=== PATIENT | female | born 1985 | race Two or more races ===

== ENCOUNTER → 2022-07-02 12:49 | Outpatient (BNVA) | payer MEDICARE, SELFPAY | PROVIDERS: PCP Internal Medicine; Visit Provider Psychiatry & Neurology Neurology | DX: G81.90 Hemiplegia, unspecified affecting unspecified side (principal); R56.9 Unspecified convulsions | CPT/HCPCS: 99202 ==

== ENCOUNTER → 2022-10-01 09:01 | Outpatient (BNVA) | payer MEDICARE, OTHER, SELFPAY | PROVIDERS: PCP Internal Medicine; Visit Provider Nurse Practitioner Family | DX: R56.9 Unspecified convulsions (principal) | CPT/HCPCS: 99212 ==

== ENCOUNTER 2023-08-27 13:56 | Outpatient (AMB) | payer MEDICARE, SELFPAY ==
--- NOTE | 2023-08-27 14:02 | A.OFFVIS_ITS ---
Intake Vital Signs 08/27/23 14:04 Height 4 ft 11 in Weight 177 lb BMI 35.7 BP 124/68 Blood Pressure Location Lt brachial Position Sitting Pulse 84 Pulse Source Pulse Oximeter Pulse Oximetry (%) 98 Oxygen Delivery Method Room Air Intake Visit Reasons: f/u appt seizures-Confirmed Allergies No Known Allergies Allergy (Verified 08/27/23 14:06) Medication List - Last Reconciled 08/27/23 by Adiel Rivera CNP citalopram 40 mg PO DAILY divalproex 250 mg PO BID 30 days gabapentin 100 mg PO TID labetalol 100 mg PO BID HPI HPI Comments History of Present Illness Details 37y/o female comes for follow up seizure , brain MRI and EEG. Pt reports she weaned off the depakote to 250 mg BID. Reported no breakthrough seizure. However, she had a panic attack with had right side numbness. CT of brain showed no acute abnormality compared with the last one. She is on Depakote 250 mg BID and gabapentin TID. 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 She was on depakote ER 500mg 2tabs bid, gabapentin 100mg tid. She has residual right hemiparesis. Pt's BP manages well with labetalol 100 mg BID. No headaches. EEG result was normal waking EEG. Pt was referred to [facility] Medical History Seizure PTSD (post-traumatic stress disorder) OCD (obsessive compulsive disorder) Anxiety Depression Obesity HTN (hypertension) Intracranial bleed Hemiparesis Surgical History H/O: Family History Mother Cancer Father Diabetes Family/Other Ovarian cancer Family/Other Heart attack Cirrhosis of liver Social History Alcohol intake: never Patient Tobacco Use Status: Former Tobacco user Substance Use Type: Marijuana Physical Exam Vital Signs: Last Vital Signs Pulse 84 08/27/23 14:04 BP 124/68 08/27/23 14:04 Pulse Ox 98 08/27/23 14:04 Oxygen Delivery Method Room Air 08/27/23 14:04 BMI result Body Mass Index 35.7 Assessment & Plan Assessment & Plan (1) Hemiparesis: Code(s): G81.90 - Hemiplegia, unspecified affecting unspecified side (2) Seizure: Code(s): R56.9 - Unspecified convulsions Plan Continue to take depakote 250 mg BID and gabapentin 100 mg TID. Refer patient to physiatry for Botox consultation of spastic hemiparesis of right lower extremity. Orders: Referrals Physiatry Referral G81.90 - Hemiplegia, unspecified affecting unspecified side Coding Level of Care Code Est Pt Level 3 (43096) Diagnoses Hemiparesis G81.90 Seizure R56.9
[2023-08-27 14:04] VITALS: BP 124/68; PULSE 84; O2SAT 98; BMI 35.7
== END 2023-08-27 14:31 | disposition home or self-care (01) ==
PROVIDERS: PCP Internal Medicine; Visit Provider Nurse Practitioner Family
DX: G81.90 Hemiplegia, unspecified affecting unspecified side (principal); R56.9 Unspecified convulsions
CPT/HCPCS: 99213

== ENCOUNTER → 2023-08-27 13:56 | Outpatient (BNVA) | payer MEDICARE, MEDICAID, SELFPAY | PROVIDERS: PCP Internal Medicine; Visit Provider Nurse Practitioner Family | DX: G81.93 Hemiplegia, unspecified affecting right nondominant side (principal); R56.9 Unspecified convulsions | CPT/HCPCS: 99212 ==

== ENCOUNTER 2024-06-16 10:27 | Outpatient (AMB) | payer MEDICARE, MEDICAID, SELFPAY ==
[2024-06-16 10:35] VITALS: BP 122/62; PULSE 79; RESP 16; O2SAT 97; BMI 35.6
--- NOTE | 2024-06-16 10:35 | MHC.OFFVIS ---
Vital Signs 06/16/24 10:35 Height 4 ft 11 in Weight 176 lb 6 oz BMI 35.6 BP 122/62 Blood Pressure Location Rt brachial Position Sitting Respiration 16 Pulse 79 Pulse Source Pulse Oximeter Pulse Oximetry (%) 97 Oxygen Delivery Method Room Air Intake Visit Reasons: 6 mnts f/u appt Intake Note: Pt presents to the office for a 10 month follow up for hemiparesis. Rn Eligibility Required: No Allergies No Known Allergies Allergy (Verified 06/16/24 10:35) Medication List - Last Reconciled 06/16/24 by Shellie Zimmer MD citalopram 40 mg PO DAILY divalproex 250 mg PO BID 30 days gabapentin 100 mg PO TID 30 days labetalol 100 mg PO BID HPI Comments Details: 39y/o female comes for follow up seizure, brain MRI and EEG. she is on depakote to 250 mg BID. Reported no breakthrough seizure. she still gets panic attacks but has not seen a psychiatrist yet. CT of brain showed no acute abnormality compared with the last one. She is on Depakote 250 mg BID and gabapentin TID. 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 She has residual right hemiparesis. Pt's BP manages well with labetalol 100 mg BID. No headaches. EEG result was normal waking EEG. she does not drive . [facility], [facility] Medical History Seizure PTSD (post-traumatic stress disorder) OCD (obsessive compulsive disorder) Anxiety Depression Obesity HTN (hypertension) Intracranial bleed Hemiparesis Surgical History H/O: Family History Mother Cancer Father Diabetes Family/Other Ovarian cancer Family/Other Heart attack Cirrhosis of liver Social History Alcohol intake: never Patient Tobacco Use Status: Former Tobacco user Substance Use Type: Marijuana Physical Exam Vital Signs: Last Vital Signs Pulse 79 06/16/24 10:35 Resp 16 06/16/24 10:35 BP 122/62 06/16/24 10:35 Pulse Ox 97 06/16/24 10:35 Oxygen Delivery Method Room Air 06/16/24 10:35 BMI result Body Mass Index 35.6 Const General: cooperative, healthy appearing, comfortable and no acute distress Nutritional Appearance: obese Orientation/consciousness: patient oriented x3 HEENT Head: Yes normal to inspection, Yes normocephalic and Yes atraumatic Face and sinus: Yes normal facial exam Eyes General: appearance normal, both eyes and all related structures Neuro Other: Right spastic hemiparesis Right UE 4/5 Right Le 4-/5 Spasticty with restricted range of motion Gait -right circumduction General: patient oriented x3 Cranial nerves: No Bilaterally intact EOM present, Yes Nystagmus not present, Yes Normal facial strength present, No Midline tongue present and Yes Symmetric palate elevation present Motor exam (neuro): no other (left UE and LE 5/5) Deep tendon reflexes (DTR's): Right triceps reflex intensity grade: 4+, Left triceps reflex intensity grade: 2+, Rt Biceps (C5, C6): 4+, Left biceps reflex intensity grade: 2+, Right brachioradialis reflex intensity grade: 4+, Left brachioradialis reflex intensity grade: 2+, Right patellar reflex intensity grade: 4+, Left patellar reflex intensity grade: 2+, Right ankle reflex intensity grade: 4+ and Left ankle reflex intensity grade: 2+ Coordination: [id number] test normal Psych Appearance: grossly normal Speech and movement: Normal speech and movement present Assessment & Plan Assessment & Plan (1) Hemiparesis: Code(s): G81.90 - Hemiplegia, unspecified affecting unspecified side Category: Medical (2) Seizure: Code(s): R56.9 - Unspecified convulsions Category: Medical Plan Continue to take depakote 250 mg BID and gabapentin 100 mg TID. Psyhciatry eval Orders: Referrals Psychiatry Outpatient Consultation Service F32.A - Depression, unspecified, F41.9 - Anxiety disorder, unspecified, F42.9 - Obsessive-compulsive disorder, unspecified, F43.10 - Post-traumatic stress disorder, unspecified Coding Level of Care Code Est Pt Level 4 (36193) Complex EM visit Add On G2211 Diagnoses Hemiparesis G81.90 Seizure R56.9
== END 2024-06-16 11:00 | disposition home or self-care (01) ==
PROVIDERS: PCP Internal Medicine; Visit Provider Psychiatry & Neurology Neurology
DX: G81.90 Hemiplegia, unspecified affecting unspecified side (principal); R56.9 Unspecified convulsions
CPT/HCPCS: 99214; G2211

== ENCOUNTER → 2024-06-16 10:27 | Outpatient (BNVA) | payer MEDICARE, SELFPAY | PROVIDERS: PCP Internal Medicine; Visit Provider Psychiatry & Neurology Neurology | DX: G81.90 Hemiplegia, unspecified affecting unspecified side (principal); R56.9 Unspecified convulsions; F32.A Depression, unspecified; F41.9 Anxiety disorder, unspecified; F42.9 Obsessive-compulsive disorder, unspecified; F43.10 Post-traumatic stress disorder, unspecified | CPT/HCPCS: 99212 ==

== ENCOUNTER 2025-04-27 12:08 | Outpatient (AMB) | payer MEDICARE, MEDICAID, SELFPAY ==
--- NOTE | 2025-04-27 12:20 | A.OFFVIS_ITS ---
Vital Signs 04/27/25 12:21 Height 4 ft 11 in Weight 177 lb 4 oz BMI 35.8 BP 104/72 Blood Pressure Location Rt brachial Position Sitting Pulse 77 Pulse Source Pulse Oximeter Pulse Oximetry (%) 98 Oxygen Delivery Method Room Air Intake Visit Reasons: 6 mnts f/u appt Intake Note: Patient presents 6 month follow up for hemiparesis/Seizure. Accompanied by: Self / Same As Patient Allergies No Known Allergies Allergy (Verified 04/27/25 12:23) Medication List - Last Reconciled 04/27/25 by Shellie Zimmer MD citalopram 40 mg PO DAILY divalproex 250 mg PO BID 30 days gabapentin 100 mg PO TID 30 days hydroxyzine HCl 10 mg PO TID PRN labetalol 100 mg PO BID tizanidine 4 mg PO TID HPI Comments Details: 39y/o female comes for follow upof seizure she is on depakote to 250 mg BID. Reported no breakthrough seizure. she still gets panic attacks but has not seen a psychiatrist yet. CT of brain showed no acute abnormality compared with the last one. She is on Depakote 250 mg BID and gabapentin TID. 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 She has residual right hemiparesis. she is getting botox for LE spasticty Dr Zepeda and Pt's BP manages well with labetalol 100 mg BID. No headaches. EEG result was normal waking EEG. she does not drive . [facility] Medical History Seizure PTSD (post-traumatic stress disorder) OCD (obsessive compulsive disorder) Anxiety Depression Obesity HTN (hypertension) Intracranial bleed Hemiparesis Surgical History H/O: Family History Mother Cancer Father Diabetes Family/Other Ovarian cancer Family/Other Heart attack Cirrhosis of liver Social History Alcohol intake: never Patient Tobacco Use Status: Former Tobacco user Substance Use Type: Marijuana Physical Exam Vital Signs: Last Vital Signs Pulse 77 04/27/25 12:21 BP 104/72 04/27/25 12:21 Pulse Ox 98 04/27/25 12:21 Oxygen Delivery Method Room Air 04/27/25 12:21 BMI result Body Mass Index 35.8 Const General: cooperative, healthy appearing, comfortable and no acute distress Nutritional Appearance: obese Orientation/consciousness: patient oriented x3 HEENT Head: Yes normal to inspection, Yes normocephalic and Yes atraumatic Face and sinus: Yes normal facial exam Eyes General: appearance normal, both eyes and all related structures Neuro Other: Right spastic hemiparesis Right UE 4/5 Right Le 4-/5 Spasticty with restricted range of motion Gait -right circumduction General: patient oriented x3 Cranial nerves: No Bilaterally intact EOM present, Yes Nystagmus not present, Yes Normal facial strength present, No Midline tongue present and Yes Symmetric palate elevation present Motor exam (neuro): no other (left UE and LE 5/5) Deep tendon reflexes (DTR's): Right triceps reflex intensity grade: 4+, Left triceps reflex intensity grade: 2+, Rt Biceps (C5, C6): 4+, Left biceps reflex intensity grade: 2+, Right brachioradialis reflex intensity grade: 4+, Left brachioradialis reflex intensity grade: 2+, Right patellar reflex intensity grade: 4+, Left patellar reflex intensity grade: 2+, Right ankle reflex intensity grade: 4+ and Left ankle reflex intensity grade: 2+ Coordination: [id number] test normal Psych Appearance: grossly normal Speech and movement: Normal speech and movement present Assessment & Plan Assessment & Plan (1) Hemiparesis: Code(s): G81.90 - Hemiplegia, unspecified affecting unspecified side Category: Medical Qualifiers: Hemiparesis etiology: late effect of cerebrovascular disease 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 Medications: Changed From divalproex 250 mg PO BID 30 days 60 tabs 3RF To divalproex 250 mg PO BID 180 tabs 3RF 90 days From gabapentin 100 mg PO TID 30 days 90 caps 6RF To gabapentin 100 mg PO TID 270 caps 6RF 90 days Coding Level of Care Code Est Pt Level 4 (29521) Diagnoses Hemiparesis of right dominant side as late effect of nontraumatic intracerebral hemorrhage I69.151 Hemiparesis etiology: late effect of cerebrovascular disease Cerebrovascular disease type: nontraumatic intracerebral hemorrhage Hemiparesis laterality: right dominant side Seizure R56.9
[2025-04-27 12:21] VITALS: BP 104/72; PULSE 77; O2SAT 98; BMI 35.8
--- OUTSIDE RECORDS SUMMARY | 2025-04-27 13:04 | XMS_ITS ---
Author Name [facility] Organization Unknown Care Team Organization Name Specialty Phone Email Start Date End Da te [facility] Jessica Andino APRN Primary Care 02/20/2023 05/02/2024 [facility] Edwar Villegas Primary Care 09/22/2022 05/02/2024
--- OUTSIDE RECORDS SUMMARY | 2025-04-27 13:04 | XMS_ITS | Clinical Summary ---
Author Organization [address] [facility] Building Address [address] [place] [phone] Phone Care Team Providers Care Lens Molder Name Role Phone Edwar Villegas MD Primary Care Provider [phone] Allergies No known active allergies Medications divalproex (DEPAKOTE) [address] tablet Take 1 Tablet by mouth 2 times daily. Per neurologist dr Unger Active gabapentin (NEURONTIN) 100 mg capsule Take 1 capsule (100 mg total) by mouth 2 (two) times a day. 3 Active hydrOXYzine HCL (ATARAX) 10 mg tablet Take 1 tablet (10 mg total) by mouth 3 (three) times a day if needed for anxiety. 4 Active magnesium oxide (MAG-OX) 400 mg magnesium tablet Take 1 tablet (400 mg total) by mouth 1 (one) time each day. Active acetaminophen (TYLENOL) 500 mg tablet Take 2 tablets (1,000 mg total) by mouth every 6 (six) hours if needed for headaches. Active citalopram (CeleXA) 40 mg tablet Take 1 tab daily 90 tablet 1 5 Active labetaloL (NORMODYNE) 100 mg tablet Take 1 tablet (100 mg total) by mouth 2 (two) times a day. 180 tablet 1 5 Active aspirin 81 mg EC tablet Take 1 tablet (81 mg total) by mouth. 5 Active nicotine (Nicoderm CQ) 14 mg/24 hr Apply 1 patch topically. 5 Active Active Problems Problem Noted Date Diagnosed Date Thyroid nodule 05/29/2023 Overview (06/16/2024): 2.2 cm incidental finding on CTA neck 05/12/2023 History of hemorrhagic cereb rovascular accident (CVA) with residual deficit 11/13/2022 Hypertension 11/29/2020 Hemiparesis of right dominan t side as late effect of nontraumatic intracerebral hemorrhage ([facility] V24, [facility] V28) 11/08/2018 Overview (06/16/2024): Hypertensive left frontal hemorrhagic stroke 09/15/18 s/p 09/09/18. Dense R hemiparesis. Obesity (BMI 30-39.9) 04/14/2018 Major depressive disorder, r ecurrent severe without psychotic features ([facility] V24, [facility] V28) 07/08/2017 Anxiety state 04/11/2015 OCD (obsessive compulsive disorder) 02/28/2011 Encounters Date Type Department Care Team Description 03/23/2025 2:02 PM EDT - 03/23/2025 11:59 PM EDT Hospital Encounter [facility]ound [facility] [address] [place] [address] Encounter for well woman exam with routine gynecological exam; DUB (dysfunctional uterine bleeding) Discharge Disposition: Home or Self Care 03/07/2025 9:45 AM EDT Office Visit Obstetrics [facility] Gynecology - [facility] [place] [address] Rosa Weeks CNM Encounter for well woman exam with routine gynecological exam (Primary Dx); Screening mammogram for breast cancer; Screening for cervical cancer; DUB (dysfunctional uterine bleeding) from Last 3 Months Immunizations Name Administration Dates Next Due HPV, Quadrivalent 03/11/2011,03/08/2010 Influenza Quadravalent, MDCK , 0.5ml, preservative free (Flucelvax) 6mo and older 07/05/2018 Influenza trivalent, with pr eservative (Fluzone; Afluria) 6mo and older 07/25/2008 Tdap Tetanus diptheria acell ular pertussis (Boostrix; Adacel) 7yo and older 07/05/2018,07/25/2008 Surgical History Surgery Date Site/Laterality Comments SECTION 09/09/19 PROCEDURE: HISTORICAL ; COMMENT: induction failed. Healthy girl. Medical History Medical History Date Comments Hemiparesis of right dominan t side as late effect of nontraumatic intracerebral hemorrhage ([facility]/HCC V24, [facility]/HCC V28) 11/08/2018 DX:Hemiparesis of right irena nant side as late effect of nontraumatic intracerebral hemorrhage (HCC); COMMENT: Hypertensive left frontal hemorrhagic stroke 09/15/18 s/p 09/09/18. Dense R hemiparesis. History of seizure 11/29/2020 DX:History of seizure Hypertension 11/29/2020 DX:Hypertension Anxiety state 04/11/2015 DX:Anxiety state Major depressive disorder, r ecurrent severe without psychotic features ([facility]/HCC V24, [facility]/HCC V28) 07/08/2017 DX:Major depressive disorde r, recurrent severe without psychotic features ([facility]) OCD (obsessive compulsive disorder) 02/28/2011 DX:OCD (obsessive compulsive disorder) History of loop electrical e xcision procedure (LEEP) 04/14/2018 DX:History of loop electrica l excision procedure (LEEP); COMMENT: 2008 Colpo/LEEP Velma 1 an 2 . LPS 01/02/17 Negative Hpv Negative Obesity (BMI 30-39.9) 04/14/2018 DX:Obesity (BMI 30-39.9) History of hemorrhagic cerebrovascular accident (CVA) with residual deficit 11/13/2022 DX:History of hemorrhagic cerebrovascular accident (CVA) with residual deficit Family History Medical History Relation Name Comments No Known Problems Brother Healthy Diabetes Father Type 2 Oral hyp oglycemic Other: Heart Attack Maternal Grandfather Other: cancer of the ovaries Maternal Grandmother Cancer Mother skull( external ) Cirrhosis Paternal Grandmother Liver No Known Problems Sister Healthy No Known Problems Son 1 Scooter Healthy No Known Problems Son 2 [place] Healthy Breast cancer Neg Hx Colon cancer Neg Hx Pancreatic cancer Neg Hx Prostate cancer Neg Hx Uterine cancer Neg Hx Relation Name Status Comments Brother Alive 2 half bro, 1 f ull bro Daughter Diannie Alive Father Alive healthy Maternal Grandfather Maternal Grandmother Alive Mother Alive healthy Paternal Grandfather Paternal Grandmother Sister Alive healthy Son 1 Scooter Alive born 2001 [facility]alt Son 2 Gray Alive born 2007 [facility] Social History Tobacco Use Types Packs/Day Years Used Date Smoking Tobacco: Former Cigarettes Q uit: 01/13/2008 Smokeless Tobacco: Never Tobacco Cessation:Counseling Given: Not Answered Alcohol Use Standard Drinks/Week Comments Yes 0 (1 standard drink = 0.6 oz pur e alcohol) socially Comments No Sex and Gender Information Value Date Recorded Sex Assigned at Not on file Legal Sex Female 5:41 AM EST Gender Identity Not on file Sexual Orientation Not on file Occupation Industry Job Start Date Job End Date Disabled Not on file Not on file Not on file Obstetrics History Para Term AB IAB SAB Ectopic Multiple Livin g Live Births 4 3 3 1 1 3 3 Date Outcome GA Total Labor Labor/2nd/3rd Weight Sex Type Anes PTL Hali A1 A5 Name Clin 2000 SAB 2001 Term 40w 0d 2778 g (98 oz) M Vag-S pont Epidur al Livin g scooter Delivery Location:[facility] 2007 Term 3062 g (108 oz) M Vag-S pont Epidur al N Livin g 9 9 [place] Delivery Location:[facility] 2017 Term 39w 2d 3219 g (113.6 oz) F CS-LT ranv Epidur al N Livin g 8 9 [place] Altaf sexton MD Complications:Arrested activ e phase of labor, outcome of live after intrapartum distress Delivery Location:[facility] Comments:GDMA2 metform in. failed IOL - intolerance and arrest dilation 5cm. Last Filed Vital Signs Vital Sign Reading Time Taken Comments Blood Pressure 98/70 03/07/2025 9:38 AM EDT Pulse 70 03/07/2025 9:38 AM EDT Temperature 36 C (96.8 F) 11/09/2024 11:24 AM EST Respiratory Rate 18 03/07/2025 9:38 AM EDT Oxygen Saturation - - Inhaled Oxygen Concentration - - Weight 81.5 kg (179 lb 9.6 oz) 03/07/2025 9:38 A M EDT Height 149.9 cm (4' 11 ) 03/07/2025 9:38 AM EDT Body Mass Index 36.27 03/07/2025 9:38 AM EDT Plan of Treatment Upcoming Encounters Date Type Department Care Team (Late st Contact Info) Description 06/08/2025 11:30 AM EDT Appointment Radiology Department - [address] [phone] 10/30/2025 9:15 AM EST [facility] [address] [facility] [phone] 11/10/2025 9:20 AM EST Office Visit Endocrinology - [address] [phone] Ros Curiel PA [address] [place], [place] Health Maintenance Due Date Last Done Comments Hepatitis B Vaccines (1 of 3 - 19+ 3-dose series) 2004 HPV Vaccines (3 - 3-dose series) 06/03/2011 03/11/2011, 03/08/2010 Medicare Annual Wellness Visit 08/17/2022 Social Influencers of Health Screening 08/17/2022 COVID-19 Vaccine (3 - 2023-2 5 season) 2024 09/29/2021, 09/01/2021 Depression Screening 09/14/2024 Influenza Vaccine (#1) 2025 8, 06/18/2017, 07/25/2008 Hypertension/CHF/CAD Annual BMP Blood Test 08/30/2025 08/30/2024, 07/01/2024, 10/21/2023 DTaP,Tdap,and Td Vaccines (3 - Td or Tdap) 07/05/2028 07/05/2018, 07/25/2008 Cholesterol Screening (Lipid Panel) 08/30/2029 08/30/2024, 10/21/2023 Cervical Cancer Screening: HPV 03/07/2030 0 03/07/2025, 12/26/2021 Hepatitis C Screening Completed 07/14/2014 HIV Screening Completed 04/14/2018 HIB Vaccines Aged Out No longer eligi ble based on patient's age to complete this topic Hepatitis A Vaccines Aged Out No long er eligible based on patient's age to complete this topic IPV Vaccines Aged Out No longer eligi ble based on patient's age to complete this topic MMR Vaccines Aged Out No longer eligi ble based on patient's age to complete this topic Meningococcal ACWY Vaccine Aged Out N o longer eligible based on patient's age to complete this topic Meningococcal B Vaccine Aged Out No l onger eligible based on patient's age to complete this topic Pneumococcal Vaccine: Pediatrics (0 to 5 Years) and At-Risk Patients (6 to 49 Years) Aged Out No longer eligible b ased on patient's age to complete this topic RSV Immunization Patients Under 20 months Aged Out No longer eligible b ased on patient's age to complete this topic Varicella Vaccines Aged Out No longer eligible based on patient's age to complete this topic Procedures Procedure Name Priority Date/Time Associated Diagnosis Comments US PELVIS NON OB COMPLETE W TRANSVAGINAL Routine 03/23/2025 2:33 PM EDT Encounter for well woman exam with routine gynecological exam DUB (dysfunctional uterine bleeding) PAP SMEAR Routine 03/07/2025 10:29 AM EDT Encounter for well woman exam with routine gynecological exam Screening for cervical cancer HPV WITH REFLEX GENOTYPE Routine 03/07/2025 10:29 AM EDT Encounter for well woman exam with routine gynecological exam Screening for cervical cancer COMPREHENSIVE METABOLIC PANEL Routine 08/30/2024 9:14 AM EST Hyperlipidemia, unspecified hyperlipidemia type LIPID PANEL WITH REFLEX TO DIRECT LDL Routine 08/30/2024 9:14 AM EST Hyperlipidemia, unspecified hyperlipidemia type HIV SCREENING Routine 04/14/2018 HEPATITIS C SCREENING Routine 07/14/2014 from Last 3 Months or Most Recently Relevant to Health Maintenance Results * US Pelvis Non OB Complete w Transvaginal (03/23/2025 2:33 PM EDT) Anatomical Region Laterality Modality Body, Pelvis Ultrasound 03/23/2025 3:24 PM EDT Impressions 03/23/2025 3:27 PM EDT 1. Uterine fibroid -------- FINAL REPORT -------- Dictated By: Johnny Jaeger Dictated Date: 03/23/2025 15:24 ET Assigned Physician: Johnny Jaeger Reviewed and Electronically Signed By: Johnny Jaeger Signed Date: 03/23/2025 15:27 ET Workstation ID: [id number] Transcribed By: Self Edit Transcribed Date: 03/23/2025 15:24 ET Narrative 03/23/2025 3:27 PM EDT EXAM: TRANSABDOMINAL AND TRANSVAGINAL PELVIC ULTRASOUND HISTORY: heavier bleeding, evaluate fibroids COMPARISON: Ultrasound pelvis from 08/17/2013 Technique: Grayscale and Doppler images of the pelvis were obtained using transabdominal approach. Transvaginal approach was used to better characterize the ovaries. Color Doppler flow and spectral waveform analysis performed FINDINGS: The uterus is normal in size and measures 10.5 x 4.7 x 5.8 cm. The normal in caliber endometrial stripe measures up to 1.1 cm. Hypoechoic solid subserosal/intramural mass measuring 1.7 x 1.5 x 2.1 cm. Right ovary measures 3.5 x 2.6 x 3.1 cm and is sonographically unremarkable. Normal arterial and venous waveforms are identified. Left ovary measures 3.5 x 2.2 x 2.8 cm and is also sonographically unremarkable. Arterial and venous waveforms are not seen. No free fluid. Procedure Note Johnny Jaeger MD - 03/23/2025 EXAM: TRANSABDOMINAL AND TRANSVAGINAL PELVIC ULTRASOUND HISTORY: heavier bleeding, evaluate fibroids COMPARISON: Ultrasound pelvis from 08/17/2013 Technique: Grayscale and Doppler images of the pelvis were obtained usingtransabdominal approach. Transvaginal approach was used to bettercharacterize the ovaries. Color Doppler flow and spectral waveformanalysis performed FINDINGS: The uterus is normal in size and measures 10.5 x 4.7 x 5.8 cm. The normalin caliber endometrial stripe measures up to 1.1 cm. Hypoechoic solidsubserosal/intramural mass measuring 1.7 x 1.5 x 2.1 cm. Right ovary measures 3.5 x 2.6 x 3.1 cm and is sonographicallyunremarkable. Normal arterial and venous waveforms are identified. Left ovary measures 3.5 x 2.2 x 2.8 cm and is also sonographicallyunremarkable. Arterial and venous waveforms are not seen. No free fluid. IMPRESSION: 1. Uterine fibroid -------- FINAL REPORT -------- Dictated By: Johnny Jaeger Dictated Date: 03/23/2025 15:24 ET Assigned Physician: Johnny Jaeger Reviewed and Electronically Signed By: Johnny Jaeger Signed Date: 03/23/2025 15:27 ET Workstation ID: [id number] Transcribed By: Self Edit Transcribed Date: 03/23/2025 15:24 ET Rosa Weeks CNM IMG US PROCEDURES Final Resul t * HPV with reflex genotype (03/07/2025 10:29 AM EDT) HPV Negative Negative LAB MICROBIOLOGY METHOD 03/08/2025 12:30 PM EDT [facility] Brushing/Spatula Cervix uteri structure / Unknown 03/07/2025 10:29 AM EDT 03/08/2025 6:33 AM EDT Rosa Weeks CNM LAB MOLECULAR DIAGNOSTICS ORD ERABLES Final Result [facility] [address] [place] [address], * Pap smear (03/07/2025 10:29 AM EDT) Interpretation Negative for intraepithelial lesion or malignancy 03/10/2025 4:02 PM EDT [facility] General Categorization Negative 03/10/2025 4:02 PM EDT [facility] LMP 02/12/2025 03/10/2025 4:02 PM EDT [facility] Specimen Adequacy Satisfactory for evaluation, endocervical/shine sformation zone component present 03/10/2025 4:02 PM EDT [facility] Pap Methodology Liquid Based Pap Test 03/10/2025 4:02 PM EDT [facility] Disclaimer The Pap test is a screening test which carries an inherent false negative rate. These test results should be correlated with the patient's clinical findings and history. This Pap test was processed using an automated screening system. Technical cytopathology services provided by [facility], at [address] [place] [address] (CLIA # [id number]/Eric Baron MD, Fruit Grader Operator.) 03/10/2025 4:02 PM EDT [facility] Console Pap Interpretation Reported 03/10/2025 4:02 PM T [facility] Brushing/Spatula Cervix uteri structure / Unknown 03/07/2025 10:29 AM EDT 03/07/2025 10:29 AM EDT Rosa Weeks [facility] CYTOLOGY ORDERABLES Final Result [facility] [address] [place] [address], * (ABNORMAL) Lipid panel with reflex to direct LDL (08/30/2024 9:14 AM EST) Cholesterol 179 0 - 200 mg/dL LAB CHEMISTRY METHOD 08/30/2024 12:36 PM EST [facility] Triglycerides 208(H) 0 - 150 mg/dL LAB CHEMISTRY METHOD 08/30/2024 12:36 PM EST [facility] HDL 45 >=40 mg/dL LAB CHEMISTRY METHOD 08/30/2024 12:36 PM EST [facility] LDL Calculated 92 0 - 100 mg/dL LAB CHEMISTRY METHOD 08/30/2024 12:36 PM [facility] VLDL Cholesterol Tano 41.6 mg/dL LAB CHEMISTRY METHOD 08/30/2024 12:36 PM [facility] Non HDL Chol. (LDL+VLDL) 134 <145 mg/dL LAB CHEMISTRY METHOD 08/30/2024 12:36 PM [facility] Chol/HDL Ratio 4.0 0.0 - 4.4 LAB CHEMISTRY METHOD 08/30/2024 12:36 PM [facility] Blood Venous blood specimen / Unknown Venipuncture / Unknown 08/30/2024 9:14 AM EST 08/30/2024 9:14 AM EST Edwar Villegas MD LAB BLOOD ORDERABLES Libby l Result [facility] [address] [place] [address], [place] [phone] * Comprehensive metabolic panel (08/30/2024 9:14 AM EST) Sodium 138 133 - 145 mmol/L LAB CHEMISTRY METHOD 08/30/2024 12:36 PM [facility] Potassium 4.3 3.5 - 5.5 mmol/L LAB CHEMISTRY METHOD 08/30/2024 12:36 PM [facility] Chloride 108 96 - 110 mmol/L LAB CHEMISTRY METHOD 08/30/2024 12:36 PM [facility] CO2 27 21 - 32 mmol/L LAB CHEMISTRY METHOD 08/30/2024 12:36 PM [facility] Anion Gap 3 3 - 11 LAB CHEMISTRY METHOD 08/30/2024 12:36 PM [facility] Glucose 94 70 - 100 mg/dL LAB CHEMISTRY METHOD 08/30/2024 12:36 PM [facility] BUN 13 5 - 25 mg/dL LAB CHEMISTRY METHOD 08/30/2024 12:36 PM [facility] Creatinine 0.62 0.50 - 1.10 mg/dL LAB CHEMISTRY METHOD 08/30/2024 12:36 PM [facility] eGFR 116 >=60 mL/min/1. 73m2 LAB CHEMISTRY METHOD 08/30/2024 12:36 PM [facility] Comment:Calculation based on the Chronic Kidney Disease Epidemiology Collaboration (CKD-EPI) equation refit without adjustment for race. BUN/Creatinine Ratio 21.0 LAB CHEMISTRY METHOD 08/30/2024 12:36 PM [facility] Calcium 9.1 8.5 - 10.5 mg/dL LAB CHEMISTRY METHOD 08/30/2024 12:36 PM [facility] AST (SGOT) 15 10 - 42 unit/L LAB CHEMISTRY METHOD 08/30/2024 12:36 PM [facility] ALT (SGPT) 19 10 - 60 unit/L LAB CHEMISTRY METHOD 08/30/2024 12:36 PM [facility] Alkaline Phosphatase 58 42 - 121 unit/L LAB CHEMISTRY METHOD 08/30/2024 12:36 PM [facility] Total Protein 7.0 6.0 - 8.0 g/dL LAB CHEMISTRY METHOD 08/30/2024 12:36 PM [facility] Albumin 3.8 3.2 - 5.0 g/dL LAB CHEMISTRY METHOD 08/30/2024 12:36 PM [facility] Total Bilirubin 0.5 0.0 - 1.4 mg/dL LAB CHEMISTRY METHOD 08/30/2024 12:36 PM [facility] Blood Venous blood specimen / Unknown Venipuncture / Unknown 08/30/2024 9:14 AM EST 08/30/2024 9:14 AM EST us Edwar Villegas MD LAB BLOOD ORDERABLES Libby goyal Result [facility] [address] [place] [address], * HIV Screening (04/14/2018) HIV Screening abstracted Historical Provider HEALTH MAINTENANCE Final Result * Hepatitis C Screening (07/14/2014) Hepatitis C Screening abstracted Historical Provider HEALTH MAINTENANCE Final Result from Last 3 Months or Most Recently Relevant to Health Maintenance Insurance MEDICARE MEDICAID - [place] Care Teams Lens Molder Relationship Specialty Start Date End Date Edwar Villegas MD [address] [place] [id number] PCP - General Internal Medicine 07/24/20
== END 2025-04-27 12:58 | disposition home or self-care (01) ==
PROVIDERS: PCP Internal Medicine; Visit Provider Psychiatry & Neurology Neurology
DX: I69.151 Hemiplegia and hemiparesis following nontraumatic intracerebral hemorrhage affecting right dominant side (principal); R56.9 Unspecified convulsions
CPT/HCPCS: 99214

== ENCOUNTER → 2025-04-27 12:08 | Outpatient (BNVA) | payer MEDICARE, MEDICAID, SELFPAY | PROVIDERS: PCP Internal Medicine; Visit Provider Psychiatry & Neurology Neurology | DX: I69.151 Hemiplegia and hemiparesis following nontraumatic intracerebral hemorrhage affecting right dominant side (principal); R56.9 Unspecified convulsions | CPT/HCPCS: 99212 ==